=== PATIENT | female | born 1960 | race Caucasian/White ===

== ENCOUNTER 2024-01-19 15:49 | Outpatient (CLI) | payer BC, SELFPAY ==
--- NOTE | 2024-01-19 16:00 | CRLHL7_ITS ---
For Patients: As a result of the Century Cures Act, medical imaging exams and procedure reports are released immediately into your electronic medical record. You may view this report before your referring provider. If you have questions, please contact your health care provider. Indication: Chronic sinusitis Technique: Performed without IV contrast Comparison: Outside CT 12/20/2015 Findings: Frontal sinuses: Clear. Ethmoid sinuses: Clear. Maxillary sinuses: Clear. The maxillary sinus drainage pathways are patent on both sides. Sphenoid sinuses: Clear, including both sphenoethmoidal recesses. Nasal Cavity: Rightward deviation of the nasal septum again noted. Paradoxical turn of the middle turbinates. No radha bullosa. 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 The visualized portions of the orbits, intracranial contents and upper soft tissue neck are grossly negative. Impression: 1. Clear sinuses. 2. Chronic rightward nasal septal deviation. Please note that all CT scans at this facility use dose modulation, iterative reconstruction, and/or weight-based dosing when appropriate to reduce radiation dose to as low as reasonably achievable. Dictated by David Grigsby MD @ 01/25/2024 9:01:37 AM (Electronically Signed)
== END 2024-01-19 15:50 | disposition home or self-care (01) ==
LOC: CT 15:51
PROVIDERS: Visit Provider Otolaryngology
DX: J32.9 Chronic sinusitis, unspecified (principal); J34.2 Deviated nasal septum
CPT/HCPCS: 70486